=== PATIENT | male | born 1995 | race Two or more races ===

== ENCOUNTER 2024-12-16 21:08 | Emergency (ER) | payer MEDICARE ==
[~2024-12-16] VITALS: Ht 180.3 cm; Wt 85.7 kg
[2024-12-16 21:52] LABS: BASOPHILS # (AUTO) 0.1 K/UL (0.0-0.2); BASOPHILS % (AUTO) 0.6 % (0.0-2.0); EOSINOPHILS # (AUTO) 0.3 K/uL (0.0-0.7); EOSINOPHILS % (AUTO) 3.6 % (0.0-7.0); HEMATOCRIT 41.4 % (36.7-47.1); HEMOGLOBIN 14.5 g/dL (12.5-16.3); LYMPHOCYTES # (AUTO) 1.8 K/uL (0.8-4.8); LYMPHOCYTES % (AUTO) 21.8 % (20.5-51.5); MEAN CORPUSCULAR HEMOGLOBIN 30.2 uug (23.8-33.4); MEAN CORPUSCULAR HGB CONC 35 g/dL (32.5-36.3); MEAN CORPUSCULAR VOLUME 86.2 fL (73.0-96.2); MONOCYTES # (AUTO) 0.4 K/uL (0.1-1.30); MONOCYTES % (AUTO) 5.2 % (0.0-11.0); NEUTROPHILS # (AUTO) 5.7 K/uL (1.8-8.9); NEUTROPHILS % (AUTO) 68.8 % (38.5-71.5); PLATELET COUNT (AUTO) 149 K/uL (152-348); RED BLOOD CELL COUNT(AUTO) 4.81 MIL/uL (4.06-5.63); RED CELL DISTRIBUTION WIDTH 13.9 % (12.1-16.2); WHITE BLOOD COUNT (AUTO) 8.3 K/uL (3.6-10.2)
[2024-12-16 21:53] LABS: DIFFERENTIAL COMMENT 1
[2024-12-16 21:56] LABS: *BILIRUBIN,URIN NEGATIVE (NEGATIVE); *BLOOD, URINE NEGATIVE (NEGATIVE); *CLARITY,URINE CLEAR (CLEAR); *COLOR,URINE YELLOW (YELLOW); *KETONES,URINE NEGATIVE (NEGATIVE); *PROTEIN,URINE NEGATIVE (NEGATIVE); *UROBILINOGEN,URINE 0.2 E.U./dl (NORMAL); LEUKOCYTE ESTERASE ,URINE NEGATIVE (NEGATIVE); NITRITE, URINE NEGATIVE (NEGATIVE); PH,URINE 7.5 (5.0-8.0); UGLUCOSE NEGATIVE (NEGATIVE)
[2024-12-16 22:00] LABS: CALCIUM 8.6 mg/dL (8.5-10.1); POTASSIUM 3.8 mmol/L (3.5-5.1)
[2024-12-16 22:05] LABS: BILIRUBIN,DIRECT 0.1 mg/dL (0.0-0.2); BILIRUBIN,TOTAL 0.9 mg/dL (0.2-1.0); TOTAL PROTEIN, SERUM 6.8 g/dL (6.4-8.2)
[2024-12-16] MEDS ORDERED: FAMOTIDINE 20 MG TABLET ONE (23:28)
[2024-12-16] MEDS: FAMOTIDINE 20 MG TABLET PO ONE (23:31)
[2024-12-17 01:28] VITALS: BP 114/72; TEMP 98.2; O2SAT 98
== END 2024-12-17 01:29 | disposition home or self-care (01) ==
LOC: ER 21:17
DX: K29.70 Gastritis, unspecified, without bleeding (principal); R16.1 Splenomegaly, not elsewhere classified
CPT/HCPCS: 36415; 83690; 85025; A4606; A4663

== ENCOUNTER 2025-06-06 00:13 | Emergency (ER) | payer MEDICARE ==
[~2025-06-06] VITALS: Ht 188 cm; Wt 95.7 kg
[2025-06-06 00:24] VITALS: BP 132/86
[2025-06-06] MEDS ORDERED: KETOROLAC TROMETHAMINE 15 MG INJ ONE (00:35)
[2025-06-06] MEDS ORDERED: diphenhydrAMINE 50 MG/1 ML VIAL ONE ×2 (00:35→01:10)
[2025-06-06] MEDS ORDERED: ACETAMINOPHEN 500 MG TABLET ONE (00:35)
[2025-06-06] MEDS ORDERED: METOCLOPRAMIDE HCL 10 MG/2 ML VIAL ONE (00:35)
[2025-06-06] MEDS ORDERED: MECL-159 PO (00:52)
[2025-06-06] MEDS: diphenhydrAMINE 50 MG/1 ML VIAL IV ONE (01:06)
[2025-06-06] MEDS: KETOROLAC TROMETHAMINE 15 MG INJ IVP ONE (01:06)
[2025-06-06] MEDS: METOCLOPRAMIDE HCL 10 MG/2 ML VIAL IV ONE (01:06)
[2025-06-06] MEDS: ACETAMINOPHEN 500 MG TABLET PO ONE (01:16)
[2025-06-06] MEDS: IV NORMAL SALINE 500 ML BAG IV ONE (01:26)
[2025-06-06 02:16] VITALS: BP 128/81; O2SAT 99
== END 2025-06-06 02:17 | disposition home or self-care (01) ==
LOC: ER 00:28
DX: R51.9 Headache, unspecified (principal); F17.210 Nicotine dependence, cigarettes, uncomplicated; Z79.899 Other long term (current) drug therapy
CPT/HCPCS: 99284; 96374; 96375; 87804 ×2; 82962; 93005; J1885; J1200 ×2; J2765; J7040; A4606; A4663; A9150